=== PATIENT | female | born 1990 | race American Indian/Alaskan Native ===

== ENCOUNTER 2019-01-19 17:16 | Emergency (ER) | payer MEDICAID ==
[2019-01-19 17:26] VITALS: BP 138/90
--- NOTE | 2019-01-19 17:28 | Emergency Department Report ---
ED ENT HPI - General Chief complaint: Dental/Oral Stated complaint: ABSCESS Time Seen by Provider: 01/19/19 17:23 Source: patient Mode of arrival: Ambulatory Limitations: No Limitations - History of Present Illness Initial comments: pt is a 28 yo female who presents to the ED with c/o right lower dental pain that began a week ago. she states she was chewing a bone and it cracked her tooth. she has edema present to the right lower jaw. pt was supposed to see an oral surgeon at 3PM today to have dental abscess drained but did not have a ride. pt denies any fever. LNMP December 30 - Related Data Previous Rx's Medication Instructions Recorded Last Taken Type Acetaminophen/Codeine [Tylenol 1 tab PO Q6H PRN #7 tab 01/19/19 Unknown Rx /Codeine # 3 tab] Clindamycin [Clindamycin CAP] 450 mg PO TID 7 Days #63 capsule 01/19/19 Unknown Rx Ibuprofen [Motrin 800 MG tab] 800 mg PO Q8HR PRN #14 tablet 01/19/19 Unknown Rx Penicillin Vk [Veetids TAB] 500 mg PO QID 7 Days #56 tablet 01/19/19 Unknown Rx Allergies Allergy/AdvReac Type Severity Reaction Status Date / Time XANAFLEX Allergy Hives Uncoded 01/19/19 17:17 ED Dental HPI - General Chief complaint: Dental/Oral Stated complaint: ABSCESS Time Seen by Provider: 01/19/19 17:23 Source: patient Mode of arrival: Ambulatory Limitations: No Limitations - Related Data Previous Rx's Medication Instructions Recorded Last Taken Type Acetaminophen/Codeine [Tylenol 1 tab PO Q6H PRN #7 tab 01/19/19 Unknown Rx /Codeine # 3 tab] Clindamycin [Clindamycin CAP] 450 mg PO TID 7 Days #63 capsule 01/19/19 Unknown Rx Ibuprofen [Motrin 800 MG tab] 800 mg PO Q8HR PRN #14 tablet 01/19/19 Unknown Rx Penicillin Vk [Veetids TAB] 500 mg PO QID 7 Days #56 tablet 01/19/19 Unknown Rx Allergies Allergy/AdvReac Type Severity Reaction Status Date / Time XANAFLEX Allergy Hives Uncoded 01/19/19 17:17 ED Review of Systems ROS: Stated complaint: ABSCESS Other details as noted in HPI Comment: All other systems reviewed and negative ED Past Medical Hx - Past Medical History Hx Diabetes: Yes - Surgical History Additional Surgical History: HERNIA - Medications Home Medications: Home Medications Medication Instructions Recorded Confirmed Last Taken Type Acetaminophen/Codeine [Tylenol 1 tab PO Q6H PRN #7 tab 01/19/19 Unknown Rx /Codeine # 3 tab] Clindamycin [Clindamycin CAP] 450 mg PO TID 7 Days #63 capsule 01/19/19 Unknown Rx Ibuprofen [Motrin 800 MG tab] 800 mg PO Q8HR PRN #14 tablet 01/19/19 Unknown Rx Penicillin Vk [Veetids TAB] 500 mg PO QID 7 Days #56 tablet 01/19/19 Unknown Rx ED Physical Exam - General Limitations: No Limitations General appearance: alert, in no apparent distress - Head Head exam: Present: atraumatic, normocephalic - Eye Eye exam: Present: normal appearance - ENT ENT exam: Present: normal orophraynx, mucous membranes moist, other (cracked tooth present to the last molar on the right lower jaw, moderate sized area of edema present to the right lower jaw consistent with dental abcess, uvula is midline, no uvular edema) - Respiratory Respiratory exam: Present: normal lung sounds bilaterally. Absent: respiratory distress, wheezes, rales, rhonchi, stridor, chest wall tenderness, accessory muscle use, decreased breath sounds, prolonged expiratory - Cardiovascular Cardiovascular Exam: Present: regular rate, normal rhythm, normal heart sounds. Absent: systolic murmur, diastolic murmur, rubs, gallop - Neurological Exam Neurological exam: Present: alert, oriented X3 - Psychiatric Psychiatric exam: Present: normal affect, normal mood - Skin Skin exam: Present: warm, dry, intact ED Course Vital Signs 01/19/19 17:23 Temperature 98.7 F Pulse Rate 92 H Respiratory 18 Rate Blood Pressure 138/90 O2 Sat by Pulse 97 Oximetry ED Medical Decision Making - Medical Decision Making pt is a 28 yo female who presents to the ED with c/o right lower dental pain that began a week ago. she states she was chewing a bone and it cracked her tooth. she has edema present to the right lower jaw. pt was supposed to see an oral surgeon at 3PM today to have dental abscess drained but did not have a ride. pt denies any fever. LNMP December 30. VSS. on exam: cracked tooth present to the last molar on the right lower jaw, moderate sized area of edema present to the right lower jaw consistent with dental abcess, uvula is midline, no uvular edema. pt is tolerating secretions and PO intake. given prescription for clindamycin, penicillin VK, pain medication and anti-inflammatory. advised pt to please take medication as prescribed to completion. do not drive or operate heavy machinery while taking pain medication. please see your oral surgeon with in the next 2 days. return to the emergency room for any new or worsening symptoms. Critical care attestation.: If time is entered above; I have spent that time in minutes in the direct care of this critically ill patient, excluding procedure time. ED Disposition Clinical Impression: Dental abscess, Cracked tooth Disposition: TO HOME OR SELFCARE Is pt being admited?: No Does the pt Need Aspirin: No Condition: Stable Instructions: Dental Abscess (ED) Additional Instructions: please take medication as prescribed to completion. do not drive or operate heavy machinery while taking pain medication. please see your oral surgeon within the next 2 days. return to the emergency room for any new or worsening symptoms. Prescriptions: Clindamycin [Clindamycin CAP] 450 mg PO TID 7 Days #63 capsule Ibuprofen [Motrin 800 MG tab] 800 mg PO Q8HR PRN #14 tablet PRN Reason: Pain, Moderate (4-6) Acetaminophen/Codeine [Tylenol /Codeine # 3 tab] 1 tab PO Q6H PRN #7 tab PRN Reason: Pain , Severe (7-10) Penicillin Vk [Veetids TAB] 500 mg PO QID 7 Days #56 tablet Referrals: your, oral surgeon [Other] - JOHNNIE Time of Disposition: 17:29 Print Language: SAMI
== END 2019-01-19 17:44 | disposition home or self-care (01) ==
LOC: ED 17:16
DX: K04.7 Periapical abscess without sinus (principal); K03.81 Cracked tooth
CPT/HCPCS: 99282

== ENCOUNTER 2019-06-16 16:19 | Emergency (ER) | payer MEDICAID ==
[2019-06-16 16:27] VITALS: BP 152/96
--- NOTE | 2019-06-16 20:29 | Emergency Department Report ---
Chief Complaint: Upper Respiratory Infection Stated Complaint: CHEST PAIN/FLU SYM Time Seen by Provider: 06/16/19 20:02 - HPI History of Present Illness: 28-year-old Afro-[place] female presents to the emergency room for 2 episodes of sharp chest pain. Patient states that she had one episode last night. She started coughing and having sneezing. Last episode of chest pain was earlier this morning. Patient denies any chest pain or discomfort currently. Patient denies any fever or nausea no vomiting. Patient states she had chills. Patient does have a past medical history of anxiety and currently not being treated. Patient also has a past medical history of depression not currently being treated. Patient reports a past medical history of diabetes but has resolved since she's lost weight. - Exam Vital Signs: Vital Signs 06/16/19 06/16/19 16:24 16:34 Temperature 97.9 F 97.9 F Pulse Rate 80 80 Respiratory 19 16 Rate Blood Pressure 152/96 152/96 O2 Sat by Pulse 99 100 Oximetry Physical Exam: Patient's alert and oriented 3 no acute distress nontoxic Chest clear to auscultation bilateral no chest wall tenderness Cardiac regular rate and rhythm no murmurs appreciated no lower leg edema Neuro department without difficulties alert and oriented MSE screening note: Focused history and physical exam performed. Due to findings the following was ordered: 28-year-old Afro-[place] female presents to the emergency room for 2 episodes of sharp chest pain. Patient states that she had one episode last night. She started coughing and having sneezing. Last episode of chest pain was earlier this morning. Patient denies any chest pain or discomfort currently. Patient denies any fever or nausea no vomiting. Patient states she had chills. Patient does have a past medical history of anxiety and currently not being treated. Patient also has a past medical history of depression not currently being treated. Patient reports a past medical history of diabetes but has resolved since she's lost weight. Patient is referred to Dr. William. Patient reports that she will follow up with her primary care provider as she does not have any chest discomfort at this time. ED Disposition for MSE Clinical Impression: Viral syndrome Disposition: MED SCREENING EXAM-LEFT Is pt being admited?: No Does the pt Need Aspirin: No Condition: Stable Instructions: Viral Syndrome (ED) Referrals: PRIMARY CARE, [Primary Care Provider] - 3-5 Days XOCHILT FLORES MD [Staff Physician] - 3-5 Days
== END 2019-06-16 20:32 | disposition left against medical advice (07) ==
LOC: ED 16:19
DX: B34.9 Viral infection, unspecified (principal); Z88.8 Allergy status to other drugs, medicaments and biological substances
CPT/HCPCS: 99281

== ENCOUNTER 2019-07-16 17:13 | Emergency (ER) | payer MEDICAID ==
[2019-07-16 17:25] VITALS: BP 122/78
--- NOTE | 2019-07-16 17:31 | Event Note ---
ED Screening Note ED Screening Note: 28 yo female with rectal bleeding and rectal soreness. This initial assessment/diagnostic orders/clinical plan/treatment(s) is/are subject to change based on patients health status, clinical progression and re- assessment by fellow clinical providers in the ED. Further treatment and workup at subsequent clinical providers discretion. Patient/guardian urged not to elope from the ED as their condition may be serious if not clinically assessed and managed. Initial orders include: needs treatment
== END 2019-07-16 19:30 | disposition left against medical advice (07) ==
LOC: ED 17:13
DX: K62.5 Hemorrhage of anus and rectum (principal); Z53.21 Procedure and treatment not carried out due to patient leaving prior to being seen by health care provider

== ENCOUNTER 2019-07-18 22:37 | Emergency (ER) | payer MEDICAID ==
[2019-07-19] MEDS ORDERED: FAMOTIDINE 20 MG TAB PO ONE (02:01)
[2019-07-19] MEDS ORDERED: ONDANSETRON 4 MG ODT TAB PO ONE (02:01)
--- NOTE | 2019-07-19 02:12 | Emergency Department Report ---
{null, ED Female HPI - General Chief complaint: Abdominal Pain Stated complaint: BOOD IN STOOL/STOMACH PAIN Time Seen by Provider: 07/19/19 01:34 Source: patient Mode of arrival: Ambulatory Limitations: No Limitations - History of Present Illness Initial comments: This is a 28-year-old female who presents to ED complaining of noticing blood when she wiped her anus 3 days ago. Patient is also been complaining of some rectal pain with bowel movement. Patient states that bowel movement is a bit hard and painful to defecate. Patient states that also has been experiencing some gas and belching as foul-smelling for the past couple of days. Patient denies vomiting, fever, chest pain, shortness of breath - Related Data Previous Rx's Medication Instructions Recorded Last Taken Type Acetaminophen/Codeine [Tylenol 1 tab PO Q6H PRN #7 tab 01/19/19 Unknown Rx /Codeine # 3 tab] Clindamycin [Clindamycin CAP] 450 mg PO TID 7 Days #63 capsule 01/19/19 Unknown Rx Ibuprofen [Motrin 800 MG tab] 800 mg PO Q8HR PRN #14 tablet 01/19/19 Unknown Rx Penicillin Vk [Veetids TAB] 500 mg PO QID 7 Days #56 tablet 01/19/19 Unknown Rx Docusate Sodium [Colace] 100 mg PO BID #30 capsule 07/19/19 Unknown Rx Famotidine [Pepcid] 20 mg PO BID #30 tablet 07/19/19 Unknown Rx Hydrocortisone [Anucort-HC SUPPOS] 25 mg RC BID #30 supp.rect 07/19/19 Unknown Rx Ondansetron [Zofran ODT TAB] 8 mg PO TID #30 tab.rapdis 07/19/19 Unknown Rx Allergies Allergy/AdvReac Type Severity Reaction Status Date / Time shellfish derived Allergy Unknown Verified 07/18/19 22:55 XANAFLEX Allergy Hives Uncoded 01/19/19 17:17 ED Review of Systems ROS: Stated complaint: BOOD IN STOOL/STOMACH PAIN Other details as noted in HPI Comment: All other systems reviewed and negative ED Past Medical Hx - Past Medical History Hx Diabetes: Yes - Surgical History Additional Surgical History: HERNIA - Social History Smoking Status: Former Smoker Substance Use Type: Alcohol - Medications Home Medications: Home Medications Medication Instructions Recorded Confirmed Last Taken Type Acetaminophen/Codeine [Tylenol 1 tab PO Q6H PRN #7 tab 01/19/19 Unknown Rx /Codeine # 3 tab] Clindamycin [Clindamycin CAP] 450 mg PO TID 7 Days #63 capsule 01/19/19 Unknown Rx Ibuprofen [Motrin 800 MG tab] 800 mg PO Q8HR PRN #14 tablet 01/19/19 Unknown Rx Penicillin Vk [Veetids TAB] 500 mg PO QID 7 Days #56 tablet 01/19/19 Unknown Rx Docusate Sodium [Colace] 100 mg PO BID #30 capsule 07/19/19 Unknown Rx Famotidine [Pepcid] 20 mg PO BID #30 tablet 07/19/19 Unknown Rx Hydrocortisone [Anucort-HC SUPPOS] 25 mg RC BID #30 supp.rect 07/19/19 Unknown Rx Ondansetron [Zofran ODT TAB] 8 mg PO TID #30 tab.rapdis 07/19/19 Unknown Rx ED Physical Exam - General Limitations: No Limitations General appearance: alert, in no apparent distress - Head Head exam: Present: atraumatic, normocephalic - Eye Eye exam: Present: normal appearance - ENT ENT exam: Present: mucous membranes moist - Neck Neck exam: Present: normal inspection - Respiratory Respiratory exam: Present: normal lung sounds bilaterally. Absent: respiratory distress - Cardiovascular Cardiovascular Exam: Present: regular rate, normal rhythm. Absent: systolic murmur, diastolic murmur, rubs, gallop - GI/Abdominal GI/Abdominal exam: Present: soft, normal bowel sounds - Rectal Rectal exam: Present: normal rectal tone, heme (-) stool, hemorrhoids (Nonthrombosed, external and internal), tenderness (To palpation of the hemorrhoids). Absent: bloody stool - External exam: Present: normal external exam. Absent: erythema, swelling, lacerations - Extremities Exam Extremities exam: Present: normal inspection - Back Exam Back exam: Present: normal inspection - Neurological Exam Neurological exam: Present: alert, oriented X3 - Psychiatric Psychiatric exam: Present: normal affect, normal mood - Skin Skin exam: Present: warm, dry, intact, normal color. Absent: rash ED Course Vital Signs 07/18/19 22:43 Temperature 97.9 F Pulse Rate 90 Respiratory 18 Rate Blood Pressure 137/93 O2 Sat by Pulse 99 Oximetry ED Medical Decision Making - Medical Decision Making 28-year-old female presents with rectal pain secondary to hemorrhoids. Patient had no episode of rectal bleeding Patient does have a history of hemorrhoids. Hemorrhoids were nonbleeding and no signs of thrombosis. Discussed with patient to follow-up with car wrecker. Patient is in no acute distress, vital signs are normal Critical care attestation.: If time is entered above; I have spent that time in minutes in the direct care of this critically ill patient, excluding procedure time. ED Disposition Clinical Impression: Hemorrhoids, Rectal pain, Constipation Disposition: TO HOME OR SELFCARE Is pt being admited?: No Does the pt Need Aspirin: No Condition: Stable Instructions: Abdominal Pain (ED), Hemorrhoids (ED), Rectal Bleeding (ED) Additional Instructions: Make sure to follow up with the primary care physician as discussed. Take all your medications as you've been prescribed. If you have any worsening symptoms or develop new symptoms please return to ED immediately. Prescriptions: Hydrocortisone [Anucort-HC SUPPOS] 25 mg RC BID #30 supp.rect Docusate Sodium [Colace] 100 mg PO BID #30 capsule Famotidine [Pepcid] 20 mg PO BID #30 tablet Ondansetron [Zofran ODT TAB] 8 mg PO TID #30 tab.rapdis Referrals: PRIMARY CARE,MD [Primary Care Provider] - 3-5 Days [facility] [Provider Group] - 3-5 Days [facility] [Provider Group] - 3-5 Days Forms: Accompanied Note, Work/School Release Form(ED) Time of Disposition: 02:25 }
[2019-07-19 03:54] VITALS: BP 132/78
== END 2019-07-19 03:54 | disposition home or self-care (01) ==
LOC: ED 22:37
DX: K64.4 Residual hemorrhoidal skin tags (principal); E11.9 Type 2 diabetes mellitus without complications; Z98.890 Other specified postprocedural states; Z87.891 Personal history of nicotine dependence; Z91.013 Allergy to seafood; Z79.1 Long term (current) use of non-steroidal anti-inflammatories (NSAID); Z79.899 Other long term (current) drug therapy
CPT/HCPCS: Q0162